=== PATIENT | female | born 1950 | race American Indian/Alaskan Native ===

== ENCOUNTER 2018-07-25 10:38 | Emergency (ER) | payer MEDICARE, OTHER ==
[2018-07-25 10:48] VITALS: BP 144/63
[2018-07-25 11:38] LABS: ANION GAP 12.8; CHLORIDE,CL 102 mmol/L (101-111); SODIUM,NA 138 mmol/L (135-145)
--- NOTE | 2018-07-25 14:32 | EDM.PDOC ---
Scribed by Alejandra Hahn 07/25/18 1237 for Padmaja Downing NP ED HPI GENERAL MEDICAL PROBLEM - General Chief Complaint: ENT Problem Stated Complaint: SORE THROAT,RESPIRATORY,COUGH [id number] Time Seen by Provider: 07/25/18 10:55 Source of Information: Reports: Patient, RN, RN Notes Reviewed History Limitations: Reports: No Limitations - History of Present Illness INITIAL COMMENTS - FREE TEXT/NARRATIVE: Patient presents to ER with complaint of sore throat and cough beginning last Friday. She has productive cough that is white/yellow drainage. She travelled to [facility] 1 week ago. She has had shortness of breath, chest pain, sore throat , fever and chills. No nausea, vomiting or diarrhea. Onset Date: 07/18/18 Duration: Getting Worse Location: Reports: Chest, Other (sore throat) Quality: Reports: Ache Severity: Mild Improves with: Reports: None Worsens with: Reports: None Associated Symptoms: Reports: No Other Symptoms Throat Pain Score (Numeric/FACES): 7 - Related Data Allergies Allergy/AdvReac Type Severity Reaction Status Date / Time codeine Allergy Stomach Verified 07/25/18 10:49 Upset Home Meds: Home Meds Aspirin [Low Dose Aspirin EC] 81 mg PO DAILY 07/03/13 [History] Insulin Detemir [Levemir Flexpen] 25 unit SQ BEDTIME 07/03/13 [History] Insuln Asp Prot/Insulin Aspart [NovoLOG Mix 70-30] 0 unit SQ ACBRK 07/03/13 [ History] Losartan [Cozaar] 50 mg PO DAILY 07/03/13 [History] atorvaSTATin [Lipitor] 10 mg PO DAILY 07/03/13 [History] Saxagliptin HCl [Onglyza] 5 mg PO DAILY 07/25/18 [History] metFORMIN [Glucophage XR] 100 mg PO ASDIRECTED 07/25/18 [History] Past Medical History HEENT History: Reports: Impaired Vision Cardiovascular History: Reports: High Cholesterol, Hypertension Respiratory History: Reports: None Gastrointestinal History: Reports: None Genitourinary History: Reports: None FARM ADVISOR History: Reports: None Musculoskeletal History: Reports: None Neurological History: Reports: None Psychiatric History: Reports: None Endocrine/Metabolic History: Reports: Diabetes, Type II, IDDM, Obesity/BMI 30+ Hematologic History: Reports: None Immunologic History: Reports: None Oncologic (Cancer) History: Reports: None Dermatologic History: Reports: None Social & Family History - Family History Family Medical History: Noncontributory - Tobacco Use Smoking Status *Q: Never Smoker - Caffeine Use Caffeine Use: Reports: Coffee - Recreational Drug Use Recreational Drug Use: No - Living Situation & Occupation Living situation: Reports: with Family ED ROS ENT - Review of Systems Review Of Systems: ROS reveals no pertinent complaints other than HPI. ED EXAM, ENT - Physical Exam Exam: See Below Exam Limited By: No Limitations General Appearance: Alert, WD/WN, No Apparent Distress Eye Exam: Bilateral Eye: EOMI, Normal Inspection, PERRL Ears: Normal External Exam, Normal Canal, Hearing Grossly Normal, Normal TMs Nose: Normal Inspection, Normal Mucousa, No Blood Mouth/Throat: Other (throat erythema) Head: Atraumatic, Normocephalic Neck: Normal Inspection, Supple, Non-Tender, Full Range of Motion Respiratory/Chest: Other (clear but diminished) Cardiovascular: Normal Peripheral Pulses, Regular Rate, Rhythm, No Edema, No Gallop, No JVD, No Murmur, No Rub GI/Abdominal: Normal Bowel Sounds, Soft, Non-Tender, No Organomegaly, No Distention, No Abnormal Bruit, No Mass (Female) Exam: Deferred Rectal (Female) Exam: Deferred Back: Normal Inspection, Full Range of Motion Extremities: Normal Inspection, Normal Range of Motion, Non-Tender, No Pedal Edema, Normal Capillary Refill Neurological: Alert, Oriented, CN II-XII Intact, Normal Cognition, Normal Gait, Normal Reflexes, No Motor/Sensory Deficits Psychiatric: Normal Affect, Normal Mood Skin: Warm, Dry, Intact, Normal Color, No Rash Lymphatic: No Adenopathy Course - Vital Signs Last Recorded V/S: Last Vital Signs Temp 96.1 F 07/25/18 10:46 Pulse 69 07/25/18 10:46 Resp 18 07/25/18 10:46 BP 144/63 H 07/25/18 10:46 Pulse Ox 93 L 07/25/18 10:46 - Orders/Labs/Meds Labs: Laboratory Tests 07/25/18 07/25/18 Range/Units 11:12 11:12 WBC 7.8 (5.0-10.0) 10^3/uL RBC 4.36 (4.2-5.4) 10^6/uL Hgb 12.3 D (12.0-16.0) g/dL Hct 38.3 (37.0-47.0) % MCV 87.8 D (80-100) fL MCH 28.2 (27.0-34.0) pg MCHC 32.1 L (33.0-35.0) g/dL Plt Count 236 (150-450) 10^3/uL Neut % (Auto) 71.9 (42.2-75.2) % Lymph % (Auto) 18.8 L (20.5-50.1) % [place] % (Auto) 6.3 (2-8) % Eos % (Auto) 2.7 (1.0-3.0) % Baso % (Auto) 0.3 (0.0-1.0) % Sodium 138 (135-145) mmol/L Potassium 3.8 (3.6-5.0) mmol/L Chloride 102 (101-111) mmol/L Carbon Dioxide 27.0 (21.0-31.0) mmol/L Anion Gap 12.8 BUN 6 L (7-18) mg/dL Creatinine 0.6 (0.6-1.3) mg/dL Est Cr Clr Drug Dosing 75.26 mL/min Estimated GFR (MDRD) > 60 BUN/Creatinine Ratio 10.00 Glucose 115 H (74-105) mg/dL Calcium 9.2 (8.4-10.2) mg/dl Total Bilirubin 0.6 (0.2-1.0) mg/dL AST 22 (10-42) IU/L ALT 16 (10-60) IU/L Alkaline Phosphatase 67 (42-121) IU/L B-Natriuretic Peptide 42 (0-100) pg/ml Total Protein 7.3 (6.7-8.2) g/dl Albumin 3.8 (3.2-5.5) g/dl Globulin 3.5 Albumin/Globulin Ratio 1.09 - Radiology Interpretation Free Text/Narrative:: Chest xray: FINDINGS: Lungs: Low lung volumes are noted. This accentuates bronchovascular markings as well as cardiac size. The lungs are clear. Pleural space: Unremarkable. No pleural effusion. No pneumothorax. Heart/Mediastinum: There is cardiomegaly. Bones/joints: Unremarkable. IMPRESSION: No acute process is present within the chest. Thank you for allowing us to participate in the care of your patient. Dictated and Authenticated by: Thomas Vidal MD 07/25/2018 12:32 PM Central Time ([place] & [place]) See rad report Departure - Departure Time of Disposition: 12:36 Disposition: Home, Self-Care 01 Condition: Fair Clinical Impression: Acute bronchitis Qualifiers: Bronchitis organism: unspecified organism Qualified Code(s): J20.9 - Acute bronchitis, unspecified - Discharge Information *PRESCRIPTION DRUG MONITORING PROGRAM REVIEWED*: No *COPY OF PRESCRIPTION DRUG MONITORING REPORT IN PATIENT JAYDEN: No Instructions: Acute Bronchitis, Adult, [id number] Referrals: PCP,None [Ordering Only Provider] - Forms: ED Department Discharge Additional Instructions: RX: Albuterol Inhaler, Amoxicillin May use Robitussin over the counter as directed May use Nyquil as directed May use Tylenol as directed for pain Follow up with your primary care facility if no improvement I have read and agree with the documentation that has been completed regarding this visit. By signing this record, I attest that the documentation was completed in my physical presence and is an accurate record of the encounter.
== END 2018-07-25 12:41 | disposition home or self-care (01) ==
LOC: DL.ED 10:38
DX: J20.9 Acute bronchitis, unspecified (principal); E78.00 Pure hypercholesterolemia, unspecified; I10 Essential (primary) hypertension; E11.9 Type 2 diabetes mellitus without complications; E66.9 Obesity, unspecified; Z88.5 Allergy status to narcotic agent; Z79.899 Other long term (current) drug therapy; Z79.82 Long term (current) use of aspirin; Z79.4 Long term (current) use of insulin; Z68.41 Body mass index [BMI] 40.0-44.9, adult
CPT/HCPCS: 36415; 71046; 80053; 83880; 85025; 99283-25

== ENCOUNTER 2021-09-21 18:55 | Emergency (ER) | payer MEDICARE, OTHER ==
[2021-09-21 19:28] VITALS: BP 114/50; PULSE 91
[2021-09-21 20:30] LABS: RESPIRATORY SYNCYTIAL VIR NAA NEGATIVE (NEGATIVE)
[2021-09-21 20:31] LABS: CORONAVIRUS COVID-19 NAA POSITIVE (NEGATIVE)
[2021-09-21 20:41] LABS: ANION GAP 11.2 mEq/L (7-13)
[2021-09-21] MEDS ORDERED: Iopamidol 755 Mg/ML 100 ML Bottle IVPUSH ONE (21:12)
[2021-09-21] MEDS ORDERED: Azithromycin 250 MG Tab PO ONE (22:14)
== END 2021-09-21 22:30 | disposition home or self-care (01) ==
LOC: DL.ED 18:55
DX: U07.1 COVID-19 (principal); E78.00 Pure hypercholesterolemia, unspecified; I10 Essential (primary) hypertension; E11.9 Type 2 diabetes mellitus without complications; E66.9 Obesity, unspecified; Z68.38 Body mass index [BMI] 38.0-38.9, adult; Z86.16 Personal history of COVID-19; Z88.5 Allergy status to narcotic agent; Z79.82 Long term (current) use of aspirin; Z79.4 Long term (current) use of insulin; Z79.899 Other long term (current) drug therapy
CPT/HCPCS: 0241U; 36415; 71045; 71260; 80053; 81001; 83605; 83880; 84484; 85025; 85379; 87086; 87088; 87186; 93005; 93010; 99284; 99285; A9270; Q9967

== ENCOUNTER 2023-03-06 05:49 | Day surgery (SDC) | payer MEDICARE, OTHER ==
[2023-03-06] MEDS ORDERED: Dextrose 5%-0.45% NaCl 1,000 ML IV SCH (06:00)
[2023-03-06] MEDS ORDERED: Midazolam 1 MG/ML 2 ML SDV ONE (06:17)
[2023-03-06] MEDS ORDERED: Midazolam 1 MG/ML 2 ML SDV IV ONE ×7 (06:17→07:29)
[2023-03-06] MEDS ORDERED: fentaNYL 100 MCG/2 ML SDV ONE (06:17)
[2023-03-06] MEDS ORDERED: fentaNYL 100 MCG/2 ML SDV IV ONE ×3 (06:17→07:20)
[2023-03-06 08:37] VITALS: BP 134/48; PULSE 71
== END 2023-03-06 08:45 | disposition home or self-care (01) ==
LOC: DL.SDS 05:49
PROVIDERS: ATTEND Internal Medicine Gastroenterology
DX: R19.5 Other fecal abnormalities (principal); I10 Essential (primary) hypertension; E11.9 Type 2 diabetes mellitus without complications; E78.00 Pure hypercholesterolemia, unspecified; E66.09 Other obesity due to excess calories; Z68.41 Body mass index [BMI] 40.0-44.9, adult
CPT/HCPCS: J2250; J3010; J7042

== ENCOUNTER → 2023-05-05 | Day surgery (SDC) | payer MEDICARE, OTHER ==
[~2023-05-05] MED LIST: Midazolam 1 MG/ML 2 ML SDV ONE; fentaNYL 100 MCG/2 ML SDV ONE
[2023-05-05] MEDS: Dextrose 5%-0.45% NaCl 1,000 ML IV SCH (07:20)
[2023-05-05] MEDS: fentaNYL 100 MCG/2 ML SDV IV ONE ×2 (08:10→08:11)
[2023-05-05] MEDS: Midazolam 1 MG/ML 2 ML SDV IV ONE ×2 (08:11→08:12)
[2023-05-05 10:42] VITALS: BP 152/60; PULSE 64
== END | disposition home or self-care (01) ==
LOC: DL.ENDO 06:50
PROVIDERS: ATTEND Internal Medicine Gastroenterology
DX: K29.50 Unspecified chronic gastritis without bleeding (principal); B96.81 Helicobacter pylori [H. pylori] as the cause of diseases classified elsewhere; E11.9 Type 2 diabetes mellitus without complications; I10 Essential (primary) hypertension; E78.00 Pure hypercholesterolemia, unspecified; D50.0 Iron deficiency anemia secondary to blood loss (chronic); E66.9 Obesity, unspecified; Z68.41 Body mass index [BMI] 40.0-44.9, adult
CPT/HCPCS: 87077; 88305; J2250; J3010; J7042

== ENCOUNTER 2025-01-22 14:51 | Emergency (ER) | payer MEDICARE, OTHER ==
[2025-01-22 15:41] LABS: BASOPHILS PERCENT AUTO 0.4 % (0.0-1.0); EOSINOPHILS PERCENT AUTO 0.7 % (1.0-3.0); LYMPHOCYTES PERCENT AUTO 16.5 % (20.5-50.1); MONOCYTES PERCENT AUTO 5.5 % (2-8); NEUTROPHILS PERCENT AUTO 76.9 % (42.2-75.2); PLATELET COUNT,PLT 265 10^3/uL (150-450); RED BLOOD CELL COUNT 4.49 10^6/uL (4.2-5.4); WHITE BLOOD CELL COUNT,WBC 6.7 10^3/uL (5.0-10.0)
[2025-01-22 16:06] LABS: BLOOD UREA NITROGEN,BUN 12 mg/dL (7-18); CARBON DIOXIDE,CO2 26 mmol/L (21-32); CHLORIDE,CL 101 mmol/L (98-107); CREATININE 1.03 mg/dL (0.55-1.02); EST CRCL DRUG DOSING (CG) 40.24 mL/min; GLUCOSE RANDOM 162 mg/dL (70-99); POTASSIUM,K 3.8 mmol/L (3.5-5.1); SODIUM,NA 137 mmol/L (136-145)
[2025-01-22 16:07] LABS: ESTIMATED GFR 57 mL/min (>=60); INR 1.0 (0.9-1.2); PTT,PARTIAL THROMBOPLSTIN TIME 25.4 SEC (22.0-34.0)
[2025-01-22 17:12] LABS: APPEARANCE,URINE CLEAR (CLEAR); GLUCOSE,URINE NEGATIVE (NEGATIVE); OCCULT BLOOD,URINE TRACE-INTACT (NEGATIVE)
[2025-01-22 17:22] LABS: EPITHELIAL CELLS,URINE FEW /HPF (NOT SEEN)
[2025-01-22] MEDS: Take Home: Ciprofloxacin HCl 500 MG, 6 Tab Pack PO ONE (17:33)
[2025-01-22 18:02] VITALS: BP 134/60; PULSE 69
== END 2025-01-22 17:45 | disposition home or self-care (01) ==
LOC: DL.ED 14:51
DX: N39.0 Urinary tract infection, site not specified (principal); J01.91 Acute recurrent sinusitis, unspecified; I10 Essential (primary) hypertension; E78.00 Pure hypercholesterolemia, unspecified; E11.9 Type 2 diabetes mellitus without complications; E66.9 Obesity, unspecified; Z88.5 Allergy status to narcotic agent; Z79.82 Long term (current) use of aspirin; Z79.84 Long term (current) use of oral hypoglycemic drugs; Z79.899 Other long term (current) drug therapy; Z68.37 Body mass index [BMI] 37.0-37.9, adult
CPT/HCPCS: 36415; 70450; 80048; 81001; 84484; 85025; 85610; 85730; 86140; 87086; 87088; 87186; 87428-QW; 93005; 93010; 99284; A9270-GY